=== PATIENT | female | born 2000 | race Caucasian/White ===

== ENCOUNTER 2024-10-29 13:27 | Outpatient (AMB) | payer OTHER, SELFPAY ==
--- NOTE | 2024-10-29 13:32 | MHC.PC.OV ---
Vital Signs 10/29/24 13:36 Height 5 ft 4.76 in Weight 122 lb 2 oz BMI 20.5 BP 100/60 Blood Pressure Location Lt brachial Position Standing Pulse 97 Pulse Source Pulse Oximeter Pulse Oximetry (%) 98 Oxygen Delivery Method Room Air Intake Visit Reasons: establish care Nursing Unit Clerk Required: No Accompanied by: Self / Same As Patient Allergies No Known Allergies Allergy (Verified 10/29/24 13:56) Medication List - Last Reconciled 10/29/24 by Adilia Mcdermott PA-C ferrous gluconate 324 mg PO DAILY minoxidil 2.5 mg PO DAILY multivitamin 1 tab PO DAILY norethindrone (contraceptive) 0.35 mg PO DAILY spironolactone 50 mg PO DAILY Tobacco use date assessed: 10/29/24 Dental Screening Dental Screen Date: 10/29/24 Did you have a dental visit in the last 12 months?: Yes Did you have a dental problem in the last 6 months where you did not have access to dental care?: No Was dental information given to patient?: Patient has dentist HPI establish care HPI Details 24 year old female coming to the office for the first time. Presenting with anxiety and a range of symptoms impacting wellbeing. Her depression and anxiety screenings returned positive, but due to therapeutic costs, minimal intervention occurred. 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 Current management involves dermatological consultation and multiple relevant medications. Migrainous auras that occasionally induce nausea occur biannually and has been given sumatriptan by [facility]. Palpitations without associated dyspnea or syncope present daily. The patient experiences increased sensitivity to auditory stimuli over the years, not linked to a broader auditory deficit. [facility], LAT[facility] Surgical History No pertinent past surgical history Family History Mother No problems noted. Father No problems noted. Sister No problems noted. Sister No problems noted. Social History Housing: House Alcohol intake: current Comment: 2-4 a month Patient Tobacco Use Status: Never used Tobacco e-Cigarette/Vaping Use: Never Used Second Hand Smoke Exposure: No service: No Current occupational status: student Cognitive needs: No Hearing needs: No Vision needs: Yes Questionnaire PHQ-9 Over the last 2 weeks, how often have you been bothered by any of the following problems? 1. Little interest or pleasure in doing things: several days 2. Feeling down, depressed, or hopeless: several days 3. Trouble falling or staying asleep, or sleeping too much: several days 4. Feeling tired or having little energy: several days 5. Poor appetite or overeating: not at all 6. Feeling bad about yourself - or that you are a failure or have let yourself or your family down: not at all 7. Trouble concentrating on things, such as reading the newspaper or watching television: several days 8. Moving or speaking so slowly that other people could have noticed. Or the opposite - being so fidgety or restless that you have been moving around a lot more than usual: not at all 9. Thoughts that you would be better off or of hurting yourself in some way: not at all Total score: 5 Depression Screening Interpretation: Positive (referral placed to counseling) Depression Screening Follow-up: Existing condition Depression Screening Done: Yes Source: Developed by Drs. Evin Louie, Yasemin Alba, Vincenzo North and colleagues, with an educational stuart from [employer] Thrive Questionnaire Date Thrive assessed: 10/29/24 I am a: Patient What is your living situation today?: I have a steady place to live Within the past 12 months, did the food you bought not last and you didn't have the money to get more?: Never true Within the past 12 months, did you worry whether your food would run out before you got money to buy more?: Never true Do you have trouble paying for medicines?: No Do you have trouble getting transportation to medical appointments?: No Do you have trouble paying your heating and electricity bill?: No Do you have trouble taking care of your child, family member or friend?: No Do you have trouble with day-to-day activities such as bathing, preparing meals, shopping, managing finances, etc.?: No Are you currently unemployed and looking for a job?: No Are you interested in more education?: Yes Please select the resources that you would like help with: None Currently or been in a relationship where the following occur: No concerns reported THRIVE Score: 0 AUDIT C Alcohol Use Questionnaire (AUDIT-C) 1. How often do you have a drink containing alcohol?: Monthly or less 2. How many drinks containing alcohol do you have on a typical day when you are drinking?: 3 or 4 3. How often do you have six or more drinks on one occasion?: Never Total Score: 2 DARA-7 AMB Questionnaire DARA-7 Date DARA - 7 assessed: 10/29/24 Feeling nervous, anxious, or on edge: 1 = Several days Not being able to stop or control worryin = Several days Worrying too much about different things: 1 = Several days Trouble relaxin = Several days Being so restless that it is hard to sit still: 0 = Not at all Becoming easily annoyed or irritable: 2 = More than half the days Feeling afraid as if something awful might happen: 0 = Not at all Total DARA-7 score (0-4 normal; 5-9 mild; 10-14 moderate; 15-21 severe): 6 Source: Developed by Drs. Evin Louie, Yasemin Alba, Vincenzo North and colleagues, with an educational stuart from [employer] DARA-7 Assessment Billing DARA-7 Assessment Tool: DARA-7 Assessment 53060 Review of Systems Const Denies body aches, Denies chills, Denies fever(s), Reports headache(s) and Denies poor appetite Eyes Reports no additional complaints ENT Details: sensitivity to sounds occasionally Denies dysphagia, Denies dizziness, Reports headache(s) and Denies odynophagia Card Denies chest pain, Denies syncope, Denies edema, Denies irregular heart rhythm, Denies lightheadedness and Denies dyspnea Resp Denies cough and Denies dyspnea GI Denies dysphagia, Denies diarrhea, Denies nausea, Denies odynophagia and Denies vomiting Reports no additional complaints Musc Reports no additional complaints and Denies abnormal gait Skin/Breast Reports system reviewed and no additional complaints, except as documented Neuro Denies abnormal gait, Denies dizziness, Denies syncope and Reports headache(s) Psych Reports no additional complaints Physical exam (Primary Care) Vital Signs: Last Vital Signs Pulse 97 10/29/24 13:36 BP 100/60 10/29/24 13:36 Pulse Ox 98 10/29/24 13:36 Oxygen Delivery Method Room Air 10/29/24 13:36 BMI result Body Mass Index 20.5 Tobacco/Smoking Status: Tobacco use Status Tobacco use date assessed 10/29/24 10/29/24 13:50 Patient Tobacco Use Status Never used Tobacco 10/29/24 13:50 Tobacco use type 10/29/24 13:54 e-Cigarette/Vaping Use Never Used 10/29/24 13:50 PHQ-9: PHQ-9 Score PHQ-9: Total score 5 10/29/24 14:02 Depression Screening Interpretation: Positive (referral placed to counseling) Depression Screening Follow-up: Existing condition Thrive Assessment: Date of Thrive Assessment Date Thrive assessed 10/29/24 10/29/24 13:50 Currently or been in a relationship where the following occur: No concerns reported Const General: cooperative, healthy appearing, comfortable and no acute distress Orientation/consciousness: patient oriented x3 HENMT Head: Yes normocephalic Ears: hearing grossly normal bilaterally, TM's normal bilaterally and EAC's normal General nose exam: Normal external nose present Eyes General: appearance normal, both eyes and all related structures Conjunctivae: conjunctivae normal Neck Neck: Yes full ROM and Yes no lymphadenopathy Resp Effort & Inspection: normal respiratory effort Auscultation: clear to auscultation bilaterally, no crackles, no rales, no rhonchi and no wheezes Cardio Rate: regular rate Rhythm: regular rhythm Skin General skin exam: no rashes or lesions noted Neuro General: patient oriented x3 Gait exam (Neuro): Normal gait present Extrem General: Yes normal to inspection, Yes full ROM and No edema Psych Affect: normal affect Attitude: cooperative Insight: Good insight present (Psych) Judgement: Good judgement present (Psych) Coding Level of Care Code New Pt Level 4 (22080) Diagnoses Hair loss L65.9 Anxiety F41.9 Depression F32.A Easy bruising R23.3 Trichotillomania F63.3 Migraine G43.909 Palpitations R00.2 Additional Codes DARA-7 Assessment Billing - DARA-7 Assessment Tool: DARA-7 Assessment 79891 ([id number]) Assessment & Plan Assessment & Plan (1) Hair loss: Comment: [facility] Code(s): L65.9 - Nonscarring hair loss, unspecified Category: Medical Plan: Patient is currently following with [facility] and on oral minoxidil and spironolactone for treatment. (2) Anxiety: Code(s): F41.9 - Anxiety disorder, unspecified Category: Medical Plan: Patient having history of anxiety and depression was previously seeing a counselor and found this beneficial but did find she had high co-pay days. I placed a referral for counseling today and plan to discuss with [facility] as far as affordable options for counseling for this patient. Declining medication management at this time. (3) Depression: Code(s): F32.A - Depression, unspecified Category: Medical Plan: See above (4) Easy bruising: Code(s): R23.3 - Spontaneous ecchymoses Category: Medical Plan: Patient reporting easy bruising plan to obtain blood work for further evaluation. (5) Trichotillomania: Code(s): F63.3 - Trichotillomania Category: Medical Plan: Patient reporting trichotillomania length with stress and anxiety. Plan to treat anxiety as outlined above. 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 She has the migraines by annually and plans to use sumatriptan as needed for treatment. Prescription was also sent for Zofran for nausea related to her headaches. She agrees to keep a headache diary to identify triggers for her migraines and agrees to reach out if headaches become worse or more frequent. (7) Palpitations: Code(s): R00.2 - Palpitations Category: Medical Plan: Plan to obtain Holter monitor for further evaluation. Denying any symptoms along with her palpitations. Had advised patient to continue to monitor at this time. Plan I addressed the management of anxiety with non-pharmacologic options by referring her to community health resources to emphasize talk therapy. Hair loss treatment remains dermatologically managed. Specific migraine treatments selected included sumatriptan and Zofran, with instructions on their usage. A Holter monitor was ordered to investigate reported palpitations for any arrhythmic cause. Her request for blood analysis, including an iron profile and cortisol levels, aligns with examining possible stress factors. I emphasized the importance of hydration and consistent sleep to manage triggers. Sensitivity to noise manifested in an unremarkable exam but warrants observation. This note was constructed using voice recognition software. While every effort has been made to ensure accuracy and autocad designer, still areas may have been included sometimes these areas may affect the content or meeting of the given symptoms. Total time spent caring for the patient today was 30 minutes. This includes time spent before the visit reviewing the chart, time spent during the visit, and time spent after the visit and documentation. Patient was informed and verbally consented to the use of an ambient scribe for clinic note documentation during this visit. Orders: Orders Comprehensive Met. Panel Today R23.3 - Spontaneous ecchymoses, Z00.00 - Encounter for general adult medical examination without abnormal findings IRON PROFILE Today R23.3 - Spontaneous ecchymoses Cortisol, Free Today R23.3 - Spontaneous ecchymoses ECG 3 day holter monitor Today R00.2 - Palpitations Complete Blood Count Auto Diff Today R23.3 - Spontaneous ecchymoses, Z00.00 - Encounter for general adult medical examination without abnormal findings Vitamin B12 and Folate Today F32.A - Depression, unspecified, Z13.21 - Encounter for screening for nutritional disorder Vitamin D 25-OH Total Today F32.A - Depression, unspecified, Z00.00 - Encounter for general adult medical examination without abnormal findings TSH reflex Free T4 Today F32.A - Depression, unspecified, Z00.00 - Encounter for general adult medical examination without abnormal findings Free T4 (Free Thyroxine) Today F32.A - Depression, unspecified, Z00.00 - Encounter for general adult medical examination without abnormal findings Referrals Counseling Referral F32.A - Depression, unspecified, F41.9 - Anxiety disorder, unspecified Medications: New ondansetron 4 mg PO Q8H PRN 20 tabs 0RF nausea and vomiting
[2024-10-29 13:36] VITALS: BP 100/60; PULSE 97; O2SAT 98; BMI 20.5
--- OUTSIDE RECORDS SUMMARY | 2024-10-29 13:42 | XMS_ITS | Data Portability ---
Author Organization [facility], [facility] Address [address] [place] [phone] Assessment Encounter Date Assessment Date Assessment LastModified by Organization Details LastModified Time 12/07/2017 12/07/2017 Healthy 17year old. Discussed maintaining healthy weight.Discussed importance of school. Discussed risk reduction including car safety. Importance of keeping lines of communication open. Multivit with Vit D. WCC in 1 year. Not available 12/07/2017 12:53:12 12/25/2018 12/25/2018 Healthy 18 year old. Discussed maintaining healthy weight.Discussed importance of school. Discussed risk reduction including car safety. Multivit with Vit D. WCC in 1 year. Not available 12/25/2018 12:56:53 11/26/2019 11/26/2019 Healthy 19 year old. Discussed risk reduction including car safety .Discussed future plans of school/work Multivit w/Vit D (also Iron if needed) Discussed eventual transition to adult provider. WCC in 1 year. Not available 11/22/2019 19:24:28 12/03/2020 12/03/2020 Healthy 20 year old. Discussed risk reduction including car safety .Discussed future plans of school/work Multivit w/Vit D (also Iron if needed) Discussed eventual transition to adult provider. WCC in 1 year. Not available 12/03/2020 16:17:58 Plan of Treatment Reminders Order Date Submit Date Provider Last Modified By Organization Details Last Modified Time Details Appointments None recorded. Lab lipid panel, serum 2020 021 [email or web address] [facility] (Centralized Electronic Ordering - All Locations), Patient Can Go To The Location Of Their Choice, [id number] 3 05:00:52 hemoglobi n, quantitat malcolm, transcuta neous 2019 020 [facility], [address] [place] [address], [phone], 0 09:25:13 lipid panel, blood 2019 020 [facility], [address] [place] [address], [phone], 0 14:48:44 lipid panel, serum 2019 020 [email or web address] [facility] (Centralized Electronic Ordering - All Locations), Patient Can Go To The Location Of Their Choice, [id number] 1 10:39:19 hemoglobi n, quantitat malcolm, transcuta neous 2017 018 [facility], [address] [place] [address], [phone], 8 12:44:36 Referral None recorded. Procedures None recorded. Surgeries None recorded. Imaging None recorded. Medication Orders None recorded. Patient TargetsNo targets recorded. Patient Instructions Encounter Date Encounter Id Patient Instructions Last Modified By Organization Details Last Modified Time 12/07/2017 [id number] patient health questionnaire modified for adolescents* Not available 12/07/2017 12:44:36 immunization: wh at you need to know Not available 12/07/2017 12:44:36 03/07/2018 [id number] YOUR TREATMENT GOALS: Return to Pre-Concussion Physical and Cognitive Function without symptoms. Goal Progress: Return to school time recorder. Goal Progress: Unmet Return to full physical activity symptom free. Goal Progress: Unmet YOUR TREATMENT PLAN: Return to Play Plan Cognitive Rest/Physical Rest Monitor Symptoms YOUR SELF MANAGEMENT PLAN: What you can do to meet your treatment goals: Follow Return to Play Plan. Get adequate rest. Avoid activities that worsen symptoms. Common symptoms include: headaches, sleep problems, dizziness, moodiness. Call our doctor immediately if any of these symptoms occur: Loss of consciousness, change in mental status (confusion, doesn? t know where they are or who your are), worsening headache, persistent vomiting, dizziness.. Additional Resources and Treatment Strategies: www.cdc.gov/pratibha pagan/pdf/coaches_e ngl.pdf Not available 03/07/2018 19:31:06 2nd concussion happened 2 days ago. Last was 2 years ago. stayed home from school today CGS=6. Gave school accomodation sheet-will start back to sport protocol once back at school and no sx for 24 hrs- if not progressing as expected in 1 week f/u. Discussed 2nd impact syndrome. Aleve for HAs-limit to 3 times a week Not available 03/07/2018 19:36:23 12/25/2018 [id number] patient health questionnaire modified for adolescents* Not available 12/25/2018 12:01:20 immunization: wh at you need to know Not available 12/25/2018 12:01:20 11/26/2019 [id number] patient health questionnaire modified for adolescents* Not available 11/26/2019 09:16:32 immunization: wh at you need to know Not available 11/26/2019 09:16:32 12/03/2020 [id number] program - 5 fruits & veggies Not available 12/03/2020 16:31:06 [id number] program - 1 hour of exercise Not available 12/03/2020 16:31:07 patient health questionnaire depression assessment* SUZY Not available 12/03/2020 16:42:34 immunization: wh at you need to know Not available 12/03/2020 16:31:07 Reason for Referral None Reported. Results Created Date Observation Date Name Description Value Unit Range Abnormal Flag Note LastModifiedBy Organization Detail LastModifiedTime 11/26/19 20 11/26/2019 patie nt healt h quest ionna mook modif ied for adole scent s* PHQ-9 negati ve Not Available [facility] [address] [place] [address], [phone], 11/26/2019 08:01:04 12/08/19 18 12/07/2017 hemog lobin , quant itati ve, trans cutan eous HEMOGLOBIN, TRANSCUTANEO US 13.5 Not Available [facility] [address] [place] [address], [phone], 12/07/2017 09:17:41 12/08/19 18 12/07/2017 patie nt healt h quest ionna mook modif ied for adole scent s* PHQ-9 negati ve Not Available [facility] [address] [place] [address], [phone], 12/07/2017 08:09:14 12/26/19 19 12/25/2018 patie nt healt h quest ionna mook modif ied for adole scent s* PHQ-9 negati ve Not Available [address], [phone], 12/25/2018 11:14:19 11/26/19 20 11/26/2019 hemog lobin , quant itati ve, trans cutan eous HEMOGLOBIN, TRANSCUTANEO US 14.6 Not Available [address], [address], 11/22/2019 19:24:12 12/04/19 21 12/03/2020 patie healt h quest ionna mook depre ssion asses sment * PHQ-9 negati ve Not Available [address], [phone], 12/03/2020 08:39:06 05/27/20 21 05/27/2021 COVID -19 (NOVE L CORON AVIRU S) PCR covid-19 PCR specimen source NASAL Not Available [facility] (Centralized Electronic Ordering - All Locations) Patient Can Go To The Location Of Their Choice, [id number] 05/30/2021 19:26:46 05/27/20 21 05/30/2021 COVID -19 (NOVE L CORON AVIRU S) PCR covid-19 PCR result (neg) NEGAT MALCOLM 2019- novel Coron aviru s (2018 -nCoV ) not detec luis alfredo by RT-PC R. Note: If clini denzel suspi cion for COVID -19 is high, arlyn nue to maint ain preca ution s and consi pancho repea t testi ng. Resul t repor luis alfredo to the [facility]. All test resul ts must be corre lated with clini denzel findi ngs. This test has been autho rized by the FDA under an Emerg ency Use Autho rizat ion (EUA) for use by autho rized labor atori es. Testi ng perfo rmed on the [employer]ptim a assay utili zing trans cript ion-m ediat ed ampli ficat ion (TMA) . Not Available [facility] (Centralized Electronic Ordering - All Locations) Patient Can Go To The Location Of Their Choice, [id number] 05/30/2021 19:26:46 Result Notes None recorded. Problems Name Problem SNOMED Code Status Onset Date Resolution Date Notes Provider Name and Address Organization Details Recorded Time Dysuria 35663231 Completed 06/09/2013 Dunia Madera MD [address] [place] [address], , [facility] 4 14:02:12 Increase d frequenc y of urinatio n 956961784 Completed 06/09/2013 Dunia Madera MD [address] [place] [address], , [facility] 4 14:02:12 Failure to thrive 60937423 Completed 12/07/2017 Dunia Madera MD [address] [place] [address], , [facility] 8 12:57:12 Headache 18972135 Completed 12/01/2016 Dunia Madera MD [address] [place] [address], , [facility] 7 13:06:38 Adjustme nt disorder 06862789 Completed 11/26/2019 Dunia Madera MD [address] [place] [address], , [facility] 0 09:15:40 Concussi on injury of brain 359015966 Active 10/10, Dunia Madera MD [address] [place] [address], , [facility] 9 09:33:02 Disorder of vision 00037473 Active 2018 Dunia Madera MD [address] [place] [address], , [facility] 9 11:45:25 Exposure to SARS-CoV -2 Completed 202008/03/2021 Removal Reason: Problem marked historic al by user lvoight from the COVID-19 watch flag Cheli Jeff [facility] 2 15:44:39 Failure to thrive 85632921 Completed 09/17/2014 Dunia Madera MD [address] [place] [address], , [facility] 8 12:57:12 Failure to thrive 26741298 Completed 12/03/2011 Dunia Madera MD [address] [place] [address], , [facility] 8 12:57:12 Eczema 89105221 Completed 200710/29/2009 Not Available [facility] 3 03:01:28 Acute upper respirat ory infectio n 05644211 Completed 200710/29/2009 Not Available [facility] 3 03:01:28 Pain in throat 886712254 Completed 12/03/2011 Not Available [facility] 3 03:01:28 Otitis media 31375402 Completed 200710/29/2009 Not Available [facility] 3 03:01:28 Verruca vulgaris 83142196 Completed 12/03/2011 Not Available [facility] 3 03:01:28 Migraine 35989759 Completed 200610/29/2009 Not Available [facility] 3 03:01:28 Migraine 99757519 Completed 10/28/2014 Dunia Madera MD [address] [place] [address], , [facility] 5 14:40:21 Disorder of lower limb 809970423 Completed 12/03/2011 Not Available [facility] 3 03:01:28 Streptoc occal sore throat 66524946 Completed 12/03/2011 Not Available [facility] 3 03:01:28 Idiopath ic scoliosi s AND/OR kyphosco liosis Completed 06/09/2013 Dunia Madera MD [address] [place] [address], , [facility] 4 14:02:12 Notes:*chol done 2020-> trig highHgb 2020 * Problem Notes None recorded. Procedures Surgical History Date Name Laterality Status Provider Name and Address Organization Details Recorded Time 7 control of posterior epistaxis completed Dunia Madera MD [address] [place] [address], , [facility] 12/22/2018 09:36:01 Imaging Results None recorded. Procedure Notes None recorded. Medical Equipment None Reported. Allergies No known drug allergies Medications Name Sig Start Date Stop Date Status Note LastModified by Organization Details LastModified Time cephalexin 250 mg/5 mL oral suspension Take 10 mL 3 times a day by oral route for 10 days. 01/12 completed Not Available Not Available Not Available sulfamethoxaz ole 200 mg-trimethopr im 40 mg/5 mL oral suspension Take 15 mL twice a day by oral route for 10 days. 01/12 completed Not Available Not Available Not Available amoxicillin 400 mg/5 mL oral suspension Take 2.5 tsp every day by oral route for 10 days. 08/09 completed Not Available Not Available Not Available amoxicillin 500 mg-potassium clavulanate 125 mg tablet TAKE 1 TABLET BY MOUTH 3 TIMES A DAY WITH FOOD AND YOGURT 12/01 completed Not Available Not Available Not Available Multi Vitamin active Not Available Not Available Not Available Vitals Date Recorded Body height Body mass index (BMI) Percentile per age and sex Body mass index (BMI) Body weight Systolic blood pressure Diastolic blood pressure Provider Name and Address Organization Details Last Updated DateTime 0 166.37 cm 8 % 18 kg/m2 07762.4 4 g 90 mm[Hg] 60 mm[Hg] Gretchen Avalos LPN [facility] 0 08:56:19 Date Recorded Body height Body mass index (BMI) Percentile per age and sex Body mass index (BMI) Body weight Systolic blood pressure Diastolic blood pressure Provider Name and Address Organization Details Last Updated DateTime 1 166.37 cm 11 % 18.5 kg/m2 19068.5 g 106 mm[Hg] 64 mm[Hg] Marianna Hough [facility] 1 16:01:17 Date Recorded Body height Body mass index (BMI) Body weight Systolic blood pressure Diastolic blood pressure Provider Name and Address Organization Details Last Updated DateTime 12/07/2017 165.1 cm 16.9 kg/m2 66969.7 g 100 mm[Hg] 60 mm[Hg] Magi Mercedes L.P.N. [facility] 8 08:15:19 Date Recorded Body height Body mass index (BMI) Body mass index (BMI) Percentile per age and sex Body weight Systolic blood pressure Diastolic blood pressure Provider Name and Address Organization Details Last Updated DateTime 9 166.37 cm 17.3 kg/m2 5 % 66521.6 4 g 100 mm[Hg] 60 mm[Hg] Sheridan Ross RN [facility] 9 11:20:00 Date Recorded Systolic blood pressure Diastolic blood pressure Provider Name and Address Organization Details Last Updated DateTime 03/07/2018 110 mm[Hg] 62 mm[Hg] Alina Mathews [facility] 03/07/2018 17:15:54 Social History Question Answer Notes LastModified by Organizat ion Details LastModified Time Tobacco Smoking Status Never Smoker Nina travis, [facility] 02/01/2013 10:56:52 Have There Been Any Changes To Your Family Or Social Situation? No Information not available 12/01/2016 Hard Of Hearing Or Deaf In One Or Both Ears? No Information not available 12/01/2016 Legally Blind In One Or Both Eyes? No Information not available 12/01/2016 Parent's Marital Status Information not available 12/16/2015 Home Situation Mother Information not available 10/28/2014 Siblings Wilma (F) 12/23/1993 05 Information not available 04/01/2011 Year In [facility] Fall 2020 [email or web address] Information not available 12/03/2020 Parent's Name Chantell [employer] 05 Information not available 04/01/2011 Parent's Name Cortez Meza Dad Frequenty Information not available 04/01/2011 What Was The Date Of Your Most Recent Tobacco Screening? 12/07/2017 Information not available 12/19/2018 Are You Passively Exposed To Smoke? Yes Dad Outside [facility] Information not available 06/11/2013 Have You Recently Traveled Abroad? No [email or web address] Information not available 11/26/2019 Sex: Unknown Functional Status None recorded. Mental Status None recorded. Family History Relationship Description Onset Age of this Age Resolved Age Notes LastModified by Organization Details LastModified Time Mother Migraine [email or web address] Not available 10/28/2014 14:00:50 Father Inflammatory bowel disease [email or web address] Not available 2014 14:00:50 Notes:Updated 12/15 Medical History Condition Response DEVELOPMENTAL/ BEHAVIORAL PROBLEMS Y MUSCLE/ JOINT/ BONE PROBLEMS Y HOSPITALIZATIONS Y ENT PROBLEMS/OTITIS MEDIA/ CHRONIC Y ACCIDENTS INJURIES Y OTHER Y HEADACHES/MIGRAINES/DIZZINESS Y GI PROBLEMS/CONSTIPATION Y OPHTHALMOLOGIC PROBLEMS Y ORTHOPEDIC PROBLEMS Y PSYCH PROBLEMS Y Gynecological History Statement/Question Response Date of LMP 11/19/2020 Age at onset of periods 04/2016- Obstetrics History GPAL:G 0 P 0 0 0 0 Immunizations Vaccine Type Date Status Note Provider Name and Address Organization Details Recorded Time Influenza, split virus, trivalent, preservative 03/26/20 12 completed Not Available [facility] 06/14/2019 02:35:24 meningococcal MCV4P 06/11/19 14 completed Not Available [facility] 06/14/2019 02:33:34 Tdap 06/11/19 14 completed Not Available [facility] 06/14/2019 02:33:46 Influenza, split virus, quadrivalent, PF 04/07/20 15 completed Not Available [facility] 06/14/2019 02:36:24 HPV9 12/02/19 17 completed Not Available [facility] 06/14/2019 02:37:30 meningococcal MCV4P 12/08/19 18 completed Not Available [facility] 06/14/2019 02:38:27 HPV9 12/08/19 18 completed Not Available [facility] 06/14/2019 02:38:41 HPV9 12/26/19 19 completed Not Available [facility] 06/14/2019 02:39:12 Hep A, ped/adol, 2 dose 11/26/19 20 completed SALAS Lion, [facility] 11/26/2019 09:24:50 meningococcal B, OMV 11/26/19 20 cancelled patient objection Dunia Madera MD [address] [place] [address], , [facility] 11/26/2019 09:16:32 Hep A, adult 12/04/19 21 cancelled patient objection Dunia Madera MD [address] [place] [address], , [facility] 12/03/2020 16:31:07 meningococcal B, OMV 12/04/19 21 cancelled patient objection Dunia Madera MD [address] [place] [address], , [facility] 12/03/2020 16:31:07 varicella 09/12/19 03 completed Not Available [facility] 04/01/2011 03:17:38 DTaP, unspecified formulation 11/14/19 02 completed Not Available [facility] 04/01/2011 03:17:38 DTaP, unspecified formulation 01/09/20 02 completed Not Available [facility] 04/01/2011 03:17:38 DTaP, unspecified formulation 03/12/20 02 completed Not Available [facility] 04/01/2011 03:17:38 DTaP, unspecified formulation 03/19/20 03 completed Not Available [facility] 04/01/2011 03:17:38 IPV 11/14/19 02 completed Not Available [facility] 04/01/2011 03:17:38 IPV 01/09/20 02 completed Not Available [facility] 04/01/2011 03:17:38 IPV 03/19/20 03 completed Not Available [facility] 04/01/2011 03:17:38 MMR 12/19/19 03 completed Not Available [facility] 04/01/2011 03:17:38 MMR 09/21/19 06 completed Not Available [facility] 04/01/2011 03:17:38 Hep B, unspecified formulation 10/10/19 02 completed Not Available [facility] 04/01/2011 03:17:38 Hep B, unspecified formulation 06/12/19 03 completed Not Available [facility] 04/01/2011 03:17:38 Hib, unspecified formulation 11/14/19 02 completed Not Available [facility] 04/01/2011 03:17:38 Hib, unspecified formulation 01/09/20 02 completed Not Available [facility] 04/01/2011 03:17:38 Hib, unspecified formulation 03/12/20 02 completed Not Available [facility] 04/01/2011 03:17:38 Hib, unspecified formulation 12/19/19 03 completed Not Available [facility] 04/01/2011 03:17:38 Hep B, unspecified formulation 09/08/19 02 completed Not Available [facility] 04/01/2011 03:17:38 pneumococcal conjugate PCV 7 11/14/19 02 completed Not Available [facility] 04/01/2011 03:17:38 pneumococcal conjugate PCV 7 01/09/20 02 completed Not Available [facility] 04/01/2011 03:17:38 pneumococcal conjugate PCV 7 03/12/20 02 completed Not Available [facility] 04/01/2011 03:17:38 pneumococcal conjugate PCV 7 12/19/19 03 completed Not Available [facility] 04/01/2011 03:17:38 DTaP, unspecified formulation 12/26/19 07 completed Not Available [facility] 04/01/2011 03:16:44 IPV 12/26/19 07 completed Not Available [facility] 04/01/2011 03:16:44 varicella 12/26/19 07 completed Not Available [facility] 04/01/2011 03:17:38 Past Encounters Encounter ID Performer Location Encounter Start Date Encounter Closed Date Diagnosis/Indication Diagnosis SNOMED-CT Code Diagnosis ICD10 Code Diagnosis Note [id number] Emigdio Huntley MD [facility] [address] [place] [phone] 12/25/2006 14:19:32 12/25/2006 15:12:27 [id number] Emigdio Huntley MD [facility] [address] [place] [address] 08/03/2007 08:50:22 08/03/2007 09:58:50 [id number] Lina Diaz MD [facility] [address] [place] [address] 08/23/2007 16:47:13 08/23/2007 17:11:04 [id number] lAejandro Abraham MD [facility] [address] [place] [id number] 09/09/2007 10:27:30 02/04/2009 01:23:50 [id number] Dunia Madera MD [facility] [address] [place] [id number] 10/22/2007 09:25:28 02/04/2009 01:23:50 [id number] Dunia Madera MD [facility] [address] [place] [id number] 4 10/27/2008 15:49:50 10/27/2008 16:31:43 [id number] Dunia Madera MD [facility] [address] [place] [id number] 11/02/2009 14:56:55 11/02/2009 16:04:58 [id number] Dunia Madera MD [facility] [address] [place] [phone] 05/10/2010 16:40:09 05/10/2010 17:18:48 [id number] Dunia Madera MD [facility] [address] [place] [id number] 07/28/2010 14:37:37 07/28/2010 15:56:42 [id number] Dunia Madera MD [facility] [address] [place] [id number] 4 11/03/2010 16:20:54 11/03/2010 17:12:01 [id number] Alejandro Abraham MD [facility] [address] [id number] 01/02/2011 11:17:16 01/02/2011 11:50:16 [id number] Dunia Madera MD [address] [phone] 03/16/2011 13:59:32 03/16/2011 14:44:49 [id number] Dunia Madera MD [address] [phone] 12/05/2011 15:50:03 12/05/2011 16:59:19 [id number] Dunia Madera MD [address] [id number] 03/26/2012 10:20:55 03/26/2012 11:58:31 [id number] Lina Diaz MD [address] [address] 02/01/2013 10:43:59 02/01/2013 11:17:02 Dysuria 69364563 Increased frequency of urination 355259018 likely stress related daytime freq. urination syndrome. disc with mom and reassuranc e. [id number] Dunia Madera MD [address] [id number] 06/11/2013 13:18:33 06/11/2013 16:47:14 Well child 996368622 poor weight gain- (again) & height gain-sib had same issue and mom w/menses at 15-likely const growth delay-will increase cals again-stanley es/icecrea m daily-will f/u 4 months-if not improved would do screening labs and bone age.Contin ue whole milk-will f/u in 4 months. Lipids then if labs needed [id number] Dunia Madera MD [address] [id number] 10/22/2013 13:18:50 10/22/2013 14:39:33 Failure to thrive 19084656 good wgt gain since last visit- - is VERY active (sib also w/low wgt issues in the past ) -will continue whole milk-will try to push healthy calories.N o pubertal changes yet-grew 1/2 inch past 4 months-kendal l recheck 05/2014-if not 59 inches will check labs and BA (that would be 2 inches a year past 2 years ) -likely prepuberta l slowdown w/const growth delay BUT would like to r/o pathology. [id number] Dunia Madera MD [address] [address] 10/28/2014 13:51:34 10/28/2014 14:56:38 Well child 418744193 good height gain- just started w/pubertal changes-an ticipate increase now- constituti onal growth delay (see below) Failure to thrive 05548048 Continues w/poor weight gain-altho ugh now grew 2 inches over the past year- unfortunat jay did not f/u as directed 05/2014- now has only gained 3 lbs in the past year. Most likely 2nd to not enough cals- BUT will check labs & stool OB--increa se cals -add instant breakfast to milk in the continue whole milk-shake s nightly-f/ u in 2 months Headache 81626654 a few times a month-help ed w/tylenol- no migraines [id number] Dunia Madera MD [facility] [address] [address] 12/29/2014 14:20:01 12/29/2014 15:38:24 Failure to thrive 05469246 Excellent height and weight gain!!! up 3 lbs in 2 months (more than the past year ) with whole milk and icecream- labs were all wnl- will continue to push calories-f /u one last time in 3 months-as long as she is doing well. Likely constituti onal growth delay in addition to need for increased calories [id number] Dunia Madera MD [facility] [address] 04/07/2015 14:31:22 04/07/2015 17:34:55 Influenza vaccine needed [id number] 106 Z23 Failure to thrive 546635 06 R62.51 Excellent height gain but poor weight gain over the post 3 months-onl y up1 lb- had done much better last visit. labs were all wnl-done recently. Overall over the past 4 years has gone from 40 % BMI to now @ 4%- Likely constituti onal growth delay in addition to need for increased calories. VERY active. Parents deny ANY signs of an eating disorder although would be the perfect candidate (all A student /athlete /high achiever/e asy child) . Will now add gibson milk at lunch and dinner. Extra calories in the morning. Now will refer to GI to make sure not missing anything as well as for dietary assistance . Adjustment disorder 1722 6007 F43.20 Father w/9 month old daughter who just moved away with her mom ( his girlfriend ) . Shayla is having a hard time with this. will refer to counseling . [id number] Dunia Madera MD [address] [address] 10/05/2015 13:54:58 10/05/2015 17:00:56 Concussion [id number] S06.0X0A Environmental allergy 42 1547685 T78.49XA seasonal-w ill use OTC meds [id number] Dunia Madera MD [address] [address] 12/16/2015 15:00:46 12/16/2015 17:57:50 Well child 608049015 Z00.129 good height & weight gain-still along low curve (see below) Discussed HPV vaccine. F/u at next [facility]-work on calcium Adjustment disorder 1722 6007 F43.20 Saw counselor last year-thing s are a little better w/ 1/2 sister-see s her a few times a year Headache 89055889 R51 much better Failure to thrive 254121 06 R62.51 Excellent height gain & weight gain-BMI low but has been stable over the past year-saw GI and nutrition. Last bone age only sl delayed. Still w/out menses and continued growth. Continue to push calories over the next year. [id number] Dunia Madera MD [address] [address] 12/01/2016 12:49:23 12/01/2016 16:57:06 Well child 404423130 Z00.129 good height & weight gain-still along low curve .start HPV vaccine. F/u at next [facility]-work on calcium ( OJ w/ calcium and Vit D ) Minimal scoliosis on exam Adjustment disorder 1722 6007 F43.20 Saw counselor last year-thing s are a little better w/ 1/2 sister-see s her a few times a year Headache 60527322 R51 resolved Active or passive immunization 516863949 Z23 [id number] Dunia Madera MD [address] [address] 12/07/2017 08:05:18 12/07/2017 13:03:51 Well child 869563331 Z00.129 Minimal scoliosis on exam-will observe. 2nd HPV today. Thin but goood weight gain Normal weight 18645623 Z 68.52 Active or passive immunization 269596925 Z23 [id number] Dunia Madera MD [address] [address] 03/07/2018 16:53:21 03/07/2018 18:10:33 Concussion injury of brain 471038092 S06.0X0D [id number] Dunia Madera MD [address] [address] 12/25/2018 11:04:56 12/25/2018 13:06:09 Active or passive immunization 977606815 Z23 Well child 539247526 Z00 .129 Minimal scoliosis on exam-will observe. Thin but good weight gain. Discussed meningitis B vaccine. Increase calcium. Normal weight 60374840 Z 68.52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
== END 2024-10-29 14:23 | disposition home or self-care (01) ==
LOC: HO.HMCH 13:31
DX: L65.9 Nonscarring hair loss, unspecified (principal); F41.9 Anxiety disorder, unspecified; F32.A Depression, unspecified; R23.3 Spontaneous ecchymoses; F63.3 Trichotillomania; G43.909 Migraine, unspecified, not intractable, without status migrainosus; R00.2 Palpitations

== ENCOUNTER → 2024-10-29 13:27 | Outpatient (BNVA) | payer OTHER, SELFPAY | DX: F63.3 Trichotillomania (principal); F41.9 Anxiety disorder, unspecified; F32.A Depression, unspecified; R00.2 Palpitations; R23.3 Spontaneous ecchymoses; G43.909 Migraine, unspecified, not intractable, without status migrainosus | CPT/HCPCS: 96127 ==

== ENCOUNTER 2025-03-17 09:34 | Outpatient (REF) | payer OTHER, SELFPAY ==
[2025-03-17 09:50] LABS: MANUAL DIFF FLAG NO
[2025-03-17 11:04] LABS: Hematocrit 40.6 % (37.0-47.0); Hemoglobin 13.6 g/dl (12.0-16.0); Imm Gran Abs Auto 0.01 X10*3/uL (0.00-0.03); Imm Gran Pct Auto 0.1 % (0.0-0.4); Lymphocytes Absolute Auto 1.6 X10*3/uL (1.2-4.9); Mean Corpuscular HGB Conc 33.5 g/dl (31.0-35.0); Mean Corpuscular Hemoglobin 29.9 pg (27.0-33.0); Mean Corpuscular Volume 89.2 fL (80.0-98.0); NRBC Abs Auto 0.000 X10*3/uL (0.0-0.012); NRBC Pct Auto 0.0 /100WBC (0.0-0.2); Platelet Count 221 X10*3/uL (160-400); Red Blood Count 4.55 X10*6/uL (4.20-5.50); White Blood Count 8.5 X10*3/uL (4.8-10.8)
[2025-03-17 12:17] LABS: Folate 13.4 ng/mL (> or = 4.0); Vitamin B12 551 pg/mL (200-900)
[2025-03-17 12:40] LABS: Alanine Aminotransferase 21 U/L (0-31); Albumin Level 4.6 g/dL (3.5-5.0); Alkaline Phosphatase 54 U/L (39-117); Anion Gap 9 (12-20); Aspartate Amino Transferase 19 U/L (5-31); Blood Urea Nitrogen 10 mg/dL (9-16); Calcium 8.8 mg/dL (8.4-10.2); Carbon Dioxide 27 mmol/L (22-29); Chloride 110 mmol/L (96-108); Estimated Glomerular Filt Rate > 60; Iron 92 mcg/dL (30-160); Percent Iron Saturation 33 % (15-50); Potassium 3.9 mmol/L (3.3-5.1); Sodium 142 mmol/L (135-145); Total Iron Binding Capacity 275 mcg/dL (228-428); Total Protein 7.0 g/dL (6.5-8.0); Unsaturated Iron Binding 183 ug/dL
[2025-03-17 13:52] LABS: Free T4 (Free Thyroxine) 0.95 ng/dL (0.71-1.85)
[2025-03-28 19:38] LABS: Cortisol, Free 0.40 mcg/dL
== END 2025-03-17 09:35 | disposition home or self-care (01) ==
LOC: HO.LAB 09:34
DX: Z00.00 Encounter for general adult medical examination without abnormal findings (principal); Z13.21 Encounter for screening for nutritional disorder; F32.A Depression, unspecified; R23.3 Spontaneous ecchymoses
CPT/HCPCS: 36415; 80053; 82306; 82530; 82607; 82746; 83540; 84439; 84443; 85025

== ENCOUNTER 2025-03-20 14:58 | Outpatient (AMB) | payer OTHER, SELFPAY ==
[2025-03-20 15:00] VITALS: BP 110/78; PULSE 68; TEMP 36.4; O2SAT 98; BMI 20.1
--- NOTE | 2025-03-20 15:00 | A.OFFPC_ITS ---
Vital Signs 03/20/25 15:00 Height 5 ft 4 in Weight 117 lb 4 oz BMI 20.1 BP 110/78 Blood Pressure Location Lt brachial Position Sitting Pulse 68 Pulse Source Pulse Oximeter Temp 97.5 F Temp Source Temporal Artery Scan Pulse Oximetry (%) 98 Oxygen Delivery Method Room Air Intake Visit Reasons: PE Allergies No Known Allergies Allergy (Verified 03/20/25 15:06) Medication List - Last Reviewed 03/20/25 by Alissa Bradley MA minoxidil 2.5 mg PO DAILY multivitamin 1 tab PO DAILY norethindrone (contraceptive) 0.35 mg PO DAILY spironolactone 50 mg PO DAILY Tobacco use date assessed: 03/20/25 Dental Screening Dental Screen Date: 03/20/25 Did you have a dental visit in the last 12 months?: Yes Did you have a dental problem in the last 6 months where you did not have access to dental care?: No Was dental information given to patient?: Patient has dentist HPI PE HPI Details 24-year-old female with past medical his tory of hair loss, anxiety, depression, migraines last seen 10/2024 coming in for annual exam. Presenting with an annual wellness examination. The patient attends counseling sessions biweekly and finds them somewhat beneficial. She is not on medication and does not require further intervention currently. The patient has been migraine-free for four months and has not used sumatriptan since the last visit. The patient previously experienced heart racing and palpitations but has not noticed these symptoms recently, and no further evaluation was conducted. pap smear: [facility] vaccines: Tdap due and given today, flu given today as well PFSH Surgical History No pertinent past surgical history Family History Mother No problems noted. Father No problems noted. Sister No problems noted. Sister No problems noted. Social History Housing: House Alcohol intake: current Comment: 2-4 a month Patient Tobacco Use Status: Never used Tobacco Tobacco use type: Cigarette e-Cigarette/Vaping Use: Never Used Second Hand Smoke Exposure: No service: No Current occupational status: student Cognitive needs: No Hearing needs: No Vision needs: Yes Questionnaire PHQ-9 Over the last 2 weeks, how often have you been bothered by any of the following problems? 1. Little interest or pleasure in doing things: several days 2. Feeling down, depressed, or hopeless: several days 3. Trouble falling or staying asleep, or sleeping too much: several days 4. Feeling tired or having little energy: several days 5. Poor appetite or overeating: not at all 6. Feeling bad about yourself - or that you are a failure or have let yourself or your family down: not at all 7. Trouble concentrating on things, such as reading the newspaper or watching television: several days 8. Moving or speaking so slowly that other people could have noticed. Or the opposite - being so fidgety or restless that you have been moving around a lot more than usual: not at all 9. Thoughts that you would be better off or of hurting yourself in some way: not at all Total score: 5 Depression Screening Interpretation: Positive (referral placed to counseling) Depression Screening Follow-up: Existing condition and Other Depression Screening Done: Yes Source: Developed by Drs. Evin Louie, Yasemin Alba, Vincenzo North and colleagues, with an educational stuart from [employer]. Thrive Questionnaire Date Thrive assessed: 03/20/25 I am a: Patient What is your living situation today?: I have a steady place to live Within the past 12 months, did the food you bought not last and you didn't have the money to get more?: Never true Within the past 12 months, did you worry whether your food would run out before you got money to buy more?: Never true Do you have trouble paying for medicines?: No Do you have trouble getting transportation to medical appointments?: No Do you have trouble paying your heating and electricity bill?: No Do you have trouble taking care of your child, family member or friend?: No Do you have trouble with day-to-day activities such as bathing, preparing meals, shopping, managing finances, etc.?: No Are you currently unemployed and looking for a job?: No Are you interested in more education?: Yes Please select the resources that you would like help with: None Currently or been in a relationship where the following occur: No concerns reported THRIVE Score: 0 AUDIT C Alcohol Use Questionnaire (AUDIT-C) 1. How often do you have a drink containing alcohol?: Monthly or less 2. How many drinks containing alcohol do you have on a typical day when you are drinking?: 3 or 4 3. How often do you have six or more drinks on one occasion?: Never Total Score: 2 DARA-7 AMB Questionnaire DARA-7 Date DARA - 7 assessed: 03/20/25 Feeling nervous, anxious, or on edge: 1 = Several days Not being able to stop or control worryin = Several days Worrying too much about different things: 1 = Several days Trouble relaxin = Several days Being so restless that it is hard to sit still: 0 = Not at all Becoming easily annoyed or irritable: 2 = More than half the days Feeling afraid as if something awful might happen: 0 = Not at all Total DARA-7 score (0-4 normal; 5-9 mild; 10-14 moderate; 15-21 severe): 6 Source: Developed by Drs. Evin Louie, Yasemin Alba, Vincenzo North and colleagues, with an educational stuart from [employer]. DARA-7 Assessment Billing DARA-7 Assessment Tool: DARA-7 Assessment 71871 Review of Systems Const Denies body aches, Denies fatigue, Denies fever(s), Denies frequent falls, Denies headache(s) and Denies weakness Eyes Reports no additional complaints and Denies change in vision ENT Denies dysphagia, Denies dizziness, Denies facial pain, Denies headache(s), Denies nasal congestion and Denies odynophagia Card Denies chest pain, Denies syncope, Denies irregular heart rhythm, Denies leg edema, Denies lightheadedness and Denies dyspnea Resp Denies cough and Denies dyspnea GI Denies constipation, Denies dysphagia, Denies dyspepsia, Denies diarrhea, Denies nausea, Denies odynophagia and Denies vomiting Denies urinary frequency, Denies dysuria, Denies urinary hesitancy and Denies urinary urgency Musc Denies back pain and Denies myalgias Skin/Breast Reports system reviewed and no additional complaints, except as documented Neuro Denies dizziness, Denies syncope, Denies frequent falls, Denies headache(s) and Denies weakness Psych Reports no additional complaints Endo Denies fatigue Physical exam (Primary Care) Vital Signs: Last Vital Signs Temp 97.5 F 03/20/25 15:00 Pulse 68 03/20/25 15:00 BP 110/78 03/20/25 15:00 Pulse Ox 98 03/20/25 15:00 Oxygen Delivery Method Room Air 03/20/25 15:00 BMI result Body Mass Index 20.1 Tobacco/Smoking Status: Tobacco use Status Tobacco use date assessed 03/20/25 03/20/25 15:03 Patient Tobacco Use Status Never used Tobacco 03/20/25 15:03 Tobacco use type Cigarette 03/20/25 15:03 e-Cigarette/Vaping Use Never Used 03/20/25 15:03 PHQ-9: PHQ-9 Score PHQ-9: Total score 5 03/20/25 16:31 Depression Screening Interpretation: Positive (referral placed to counseling) Depression Screening Follow-up: Existing condition and Other Thrive Assessment: Date of Thrive Assessment Date Thrive assessed 03/20/25 03/20/25 15:03 Currently or been in a relationship where the following occur: No concerns reported Const General: cooperative, healthy appearing, comfortable and no acute distress Orientation/consciousness: patient oriented x3 HENMT Head: Yes normocephalic Ears: hearing grossly normal bilaterally, external ears normal, TM's normal bilaterally and EAC's normal General nose exam: Normal external nose present Face and sinus: Yes normal facial exam and Yes sinuses nontender Mouth: Normal oral and palatal mucosa present and tongue normal Throat: Yes posterior oropharynx normal Eyes General: appearance normal, both eyes and all related structures Conjunctivae: conjunctivae normal Pupils: Equal, round and reactive pupils present EOM: EOMs intact bilaterally and No Nystagmus present Neck Neck: Yes normal visual inspection, Yes full ROM and Yes no lymphadenopathy Chest Chest palpation & inspection: normal inspection of the chest Resp Effort & Inspection: normal respiratory effort Auscultation: clear to auscultation bilaterally, no crackles, no rales, no rhonchi, no wheezes and breath sounds present Cardio Rate: regular rate Rhythm: regular rhythm Peripheral pulses: radial pulses present and dorsalis pedis present GI Inspection: Yes normal to inspection and No Abdominal wall edema Palpation (GI): Soft to palpation, not firm and nontender Auscultation: normal bowel sounds Rectal Exam - Female: deferred General: Yes no CVA tenderness Back/Spine/Pelvis Back: no CVA tenderness Skin General skin exam: no rashes or lesions noted Neuro General: patient oriented x3 Cranial nerves: Yes Equal, round and reactive pupils present, Yes Midline tongue present, Yes Ability to bilaterally elevate shoulders present and No Nystagmus present Gait exam (Neuro): Normal gait present Extrem General: Yes normal to inspection, Yes full ROM, No no pedal edema and No edema Psych Speech and movement: Normal speech and movement present Affect: normal affect Insight: Good insight present (Psych) Judgement: Good judgement present (Psych) Office Procedures Flu Questionnaire Does the patient have a severe egg allergy?: No Does the patient have severe life threatening allergies?: No Does the patient have a fever or illness today?: No Has the patient ever had Guillain-[place] Syndrome?: No Has the patient ever had any past reaction to a flu shot?: No Immunizations Fluarix [id number] (PF) 45 mcg (15 mcg x 3)/0.5 mL IM syringe Performing Provider: Adilia Mcdermott PA-C [place] [facility] [place] [facility] Administered by: CRUZ Raya on 03/20/25 15:32 Dose Route Admin Location Dispensed Lot Number Expiration Date [facility] School Age Program Associate 0.5 mL IM Left Deltoid 0.5 mL [id number] 11/24/25 [id number] [employer] VIS Given Date VIS Provided VIS Publication Date 03/20/25 Single Vaccine 24 Eligibility Eligibility Date Funding Source Not [facility] Eligible 03/20/25 Private Boostrix Tdap 2.5 Lf unit-8 mcg-5 Lf/0.5 mL intramuscular syringe Performing Provider: Adilia Mcdermott PA-C [place] [facility] [place] [facility] Administered by: CRUZ Raya on 03/20/25 15:32 Dose Route Admin Location Dispensed Lot Number Expiration Date [facility] School Age Program Associate 0.5 mL IM Left Deltoid 0.5 mL [id number] 08/22/27 05020-350-94 [employer] Total Dispensed Waste 0.5 mL 0 % VIS Given Date VIS Provided VIS Publication Date 03/20/25 Single Vaccine 20 Eligibility Eligibility Date Funding Source Not [facility] Eligible 03/20/25 Private Coding Level of Care Code Est Pt Prev Care 18-39y([id number]) Diagnoses Annual physical exam Z00.00 Anxiety F41.9 Depression F32.A Migraine G43.909 Hair loss L65.9 Palpitations R00.2 Additional Codes DARA-7 Assessment Billing - DARA-7 Assessment Tool: DARA-7 Assessment 98494 ([id number]) Assessment & Plan Assessment & Plan (1) Annual physical exam: Code(s): Z00.00 - Encounter for general adult medical examination without abnormal findings Category: Medical Plan: Patient is up-to-date on all recommended routine screenings and vaccinations for age. She was given tetanus and flu vaccine while in the office today. She will follow up yearly or sooner as needed. Blood work is up-to-date and has been reviewed with the patient today (2) Anxiety: Code(s): F41.9 - Anxiety disorder, unspecified Category: Medical Plan: Referral was placed to counseling at last visit and has been seeing counseling. She is seeing them every two weeks. (3) Depression: Code(s): F32.A - Depression, unspecified Category: Medical Plan: See above (4) Migraine: Comment: w/ aura Code(s): G43.909 - Migraine, unspecified, not intractable, without status migrainosus Category: Medical Plan: Has not had to use Sumatriptan since last visit has been 4 months without a migraine. (5) Hair loss: Comment: [facility] Code(s): L65.9 - Nonscarring hair loss, unspecified Category: Medical Plan: Patient is currently following with [facility] and on oral minoxidil a nd spironolactone for treatment. (6) Palpitations: Code(s): R00.2 - Palpitations Category: Medical Plan: Referral was placed for Holter monitor at last visit but was not completed. Palpitations has resolved at this time. Plan This note was constructed using voice recognition software. While every effort has been made to ensure accuracy and wastewater treatment supervisor, still areas may have been included sometimes these areas may affect the content or meeting of the given symptoms. Total time spent caring for the patient today was 30 minutes. This includes time spent before the visit reviewing the chart, time spent during the visit, and time spent after the visit and documentation. Patient was informed and verbally consented to the use of an ambient scribe for clinic note documentation during this visit. Orders: Orders Influenza [id number] Immunization Today Z23 - Encounter for immunization TDaP Immunization Today Z23 - Encounter for immunization
== END 2025-03-20 15:51 | disposition home or self-care (01) ==
LOC: HO.HMCH 14:58
DX: Z00.00 Encounter for general adult medical examination without abnormal findings (principal); F41.9 Anxiety disorder, unspecified; F32.A Depression, unspecified; G43.909 Migraine, unspecified, not intractable, without status migrainosus; L65.9 Nonscarring hair loss, unspecified; R00.2 Palpitations; Z23 Encounter for immunization

== ENCOUNTER → 2025-03-20 14:58 | Outpatient (BNVA) | payer OTHER, SELFPAY | DX: Z00.00 Encounter for general adult medical examination without abnormal findings (principal); F41.9 Anxiety disorder, unspecified; F32.A Depression, unspecified; G43.909 Migraine, unspecified, not intractable, without status migrainosus; L65.9 Nonscarring hair loss, unspecified; R00.2 Palpitations; Z23 Encounter for immunization | CPT/HCPCS: 90471; 90472; 90656; 90715; 96127; 99395 ==